=== PATIENT | male | born 1935 | race Caucasian/White ===

== ENCOUNTER 2018-05-04 08:18 | Inpatient (IN) | payer MEDICAID ==
[~2018-05-04] VITALS: Ht 154.9 cm; Wt 46.7 kg
[2018-05-04 08:22] VITALS: BP 57/28
--- NOTE | 2018-05-04 08:28 | NUR ---
brought in by ems from [facility] extended care decreased spo2 below 80% vent dependent --- Patient has wounds covering a large amount of body. FLACC 0 at this time. Severe generalized weakness and left eye pupil blown due to previous injury. Patient trach to vent. Hednerson cath in place at time of arrival. Dr. Villalba made aware of patients condition.
--- NOTE | 2018-05-04 08:30 | NUR ---
spoke with patients daughter. stated she was on her way to the hospital and would arrive in 20 minutes.
--- NOTE | 2018-05-04 08:48 | NUR ---
RT at bedside.
--- NOTE | 2018-05-04 09:01 | NUR ---
Patient Daughter at bedside.
[2018-05-04] MEDS ORDERED: NEOMYCIN/POLYMYXIN/BACITRACIN 0.9 GM/1 PKT TP ONE (09:15)
[2018-05-04] MEDS ORDERED: LORazepam 2 MG/ML VIAL IVP ONE (09:20)
[2018-05-04] MEDS ORDERED: MORPHINE SULFATE 4 MG/ML SYR IM ONE (09:20)
--- NOTE | 2018-05-04 09:34 | NUR ---
TIA CANCELLED PER DR TORRES
[2018-05-04] MEDS: NACL 0.9% 1,000 ML IV SCH ×2 (09:41→13:01)
--- NOTE | 2018-05-04 10:00 | NUR ---
Faheem salcido in [facility] - 05/04/18 at 1048 by [place] PATIENT FAMILY AT BEDSIDE. WOUND DRESSING CHANGES PROVIDED TO WOUNDS ON BACK AND BUTTOCKS.
--- NOTE | 2018-05-04 10:00 | NUR ---
PATIENT FAMILY AT BEDSIDE. WOUND DRESSING CHANGES PROVIDED TO WOUNDS ON BACK AND BUTTOCKS.
[2018-05-04 11:30] LABS: HEMATOCRIT 25.7 % (36-52); HEMOGLOBIN 7.6 g/dL (12.0-18.0); MEAN CORPUSCULAR HEMOGLOBIN 29 pg (27-31); MEAN CORPUSCULAR HGB CONC 30 g/dL (33-37); MEAN CORPUSCULAR VOLUME 97.7 fL (80-94); PLATELET COUNT (AUTO) 162 K/uL (140-450); RED BLOOD CELL COUNT(AUTO) 2.63 MIL/uL (4.20-6.10); RED CELL DISTRIBUTION WIDTH 18.1 % (11.6-13.7); WHITE BLOOD COUNT (AUTO) 14.3 K/uL (4.8-10.8)
[2018-05-04 11:36] LABS: ASPARTATE AMINOTRANSFERASE 18 U/L (15-37); CARBON DIOXIDE 31.2 mmol/L (21-32); CHLORIDE 99 mmol/L (98-107); CREATININE 1.1 mg/dL (0.7-1.3); GLUCOSE 72 mg/dL (74-106); POTASSIUM 5.2 mmol/L (3.5-5.1); SODIUM SERUM 137 mmol/L (136-145); TOTAL BILIRUBIN 0.5 mg/dL (0.0-1.0)
[2018-05-04 11:43] LABS: UREA NITROGEN, BLOOD 84 mg/dL (7-18)
[2018-05-04 11:51] LABS: LYMPHOCYTES % (MANUAL) 9 % (20-46); MONOCYTES % (MANUAL) 5 % (5-12)
--- NOTE | 2018-05-04 11:52 | NUR ---
PT TAKEN TO TELE FLOOR BY RN TOMMY, EMT BOOM, AND RT
[2018-05-04 11:55] LABS: APPEARANCE,URINE CLOUDY (CLEAR); BILIRUBIN,URINE NEGATIVE (NEGATIVE); BLOOD, URINE 2+ (NEGATIVE); COLOR,URINE YELLOW (YELLOW); LEUKOCYTE ESTERASE ,URINE 3+ (NEGATIVE); NITRITE, URINE NEGATIVE (NEGATIVE); UGLUCOSE NEGATIVE (NEGATIVE)
[2018-05-04] MEDS ORDERED: MORPHINE SULFATE 500 MG in NACL 0.9% 500 ML IV PRN (12:00)
[2018-05-04 12:03] LABS: RBC,URINE 20-50 /HPF (0-5); WBC,URINE TOO MANY TO COUNT /HPF (0-5)
[2018-05-04 12:05] VITALS: BP 39/18
--- NOTE | 2018-05-04 12:05 | NUR ---
PATIENT TAKEN TO TELE ROOM 1222-B UNDER THE CARE OF DR SIMONS. REPORT GIVEN TO RN FOR CONTINUED CARE. PATIENT MONITORED CLOSELY DURING TRANSFER.
--- NOTE | 2018-05-04 12:05 | NUR ---
RECEIVED BEDSIDE REPORT FROM ER NURSE. PATIENT APHASIC. TRACH TO VENT, NO DISTRESS NOTED. PATIENT UNABLE TO AMBULATE. MULTIPLE WOUNDS ON SKIN, NECK, BACK, BUTTOCKS, BUE, AND BLE. PATIENT SKIN WEEPING, R UPPER EXTREMITY SWELLING. PATIENT ON WOUND CARE BED. FALL RISK PROTOCOL IN PLACE. PICC LINE ON R UA. FI02 AT 100%, FLOW RATE OF 40, PEEP 5. 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 DRESSINGS ON WOUNDS ARE INTACT AND DRY AND CLEAN. BED IN LOW POSITION, CALL LIGHT WITHIN REACH. WILL CONTINUE TO MONITOR.
--- NOTE | 2018-05-04 12:08 | NUR ---
MOVED PT TO 122B BAGGED WITH 100% O2 THEN PLACED BACK ON VENT AND INCREASED FIO2 TO 100% DUE TO O2 SAT OF 86% AND ABHINAV FORTE NOTIFIED
[2018-05-04] MEDS ORDERED: LORazepam 1 MG TAB PO PRN (12:15)
[2018-05-04] MEDS ORDERED: SCOPOLAMINE 1.5 MG/72 HR PATCH TD SCH (12:21)
[2018-05-04] MEDS ORDERED: [UNRECOGNIZED DRUG - OTHER] IV PRN (13:30)
[2018-05-04] MEDS ORDERED: PANT40EC PO (13:50)
[2018-05-04] MEDS ORDERED: AMIO200T5 PO (13:50)
[2018-05-04] MEDS ORDERED: ASPI325T49 PO (13:50)
--- NOTE | 2018-05-04 15:42 | NUR ---
PATIENT HAD BOWEL MOVEMENT. CHANGED SOILED LINENS AND DRESSINGS AND APPLIED NEW DRESSINGS. APPLIED Z GUARD TO PATIENT. WILL CONTINUE TO MONITOR.
[2018-05-04 16:00] VITALS: BP 36/14
--- NOTE | 2018-05-04 16:00 | NUR ---
WOUND CARE NURSE STATED TO CLEAN WITH NS AND PACK WOUNDS WET TO DRY SINCE PATIENT IS ON MORPHINE DRIP.
--- NOTE | 2018-05-04 19:15 | NUR ---
PATIENT ON DOCUMENTED VENT SETTINGS. VENT PLUGGED INTO RED OUTLET. ALARMS ON AND AUDIBLE. AMBU BAG AT BEDSIDE. TRACH PATENT AND SECURED OVER WOUND. RN AWARE. ATTEMPTED TO GET CONTINUOUS PULSE OX TO READ CONTINUALLY BY TRYING THREE PULSE OX SITES TO NO AVAIL. MANAGED TO READ SAO2 ONLY FOR A FEW MINUTES. VITALS STABLE: 96%, RATE 12, PULSE 59, CLEAR BREATH SOUNDS. SXNED MODERATED AMOUNT OF THICK CREAMY SECRETIONS. FIVE FAMILY MEMBERS AT BEDSIDE PRAYING.
--- NOTE | 2018-05-04 19:40 | NUR ---
GAVE REPORT TO JEWEL BEARING BROACHER NURSE. PATIENT ENDORSED IN STABLE CONDITION.
--- NOTE | 2018-05-04 19:41 | NUR ---
RECEIVED PT FROM DAY SHIFT NURSE AT BED SIDE PT TRACH TO VENT DEPENDENT TV 500,FI02 100% RR 12 PEEP 5 ON MORPHINE DRIP INFUSING WELL ON RT UA PICC LINE, ON DEEP LETHARGIC STAGE MULTIPLES WOUND , CRONIN CATH DRAINING WELL YELLOW URINE, PT REPOSITIONED RELATIVES AT BED SIDE INITIAL ASSESSMENT DONE
[2018-05-04 20:00] VITALS: BP 36/15
--- NOTE | 2018-05-04 21:00 | NUR ---
PT ON CLOSE MONITORING LINEN CHANGED , AND SOME DRESSING CHANGED BP 36/15 PT DNR FAMILY AT BED SIDE ON TELEMETRY SB [id number] SAT 98%
--- NOTE | 2018-05-04 22:44 | NUR ---
PT HR 44 TRACH TO VENT DEPENDENT ON DEEP LETHARGIC STAGE
--- NOTE | 2018-05-04 23:00 | NUR ---
PT ON CONTINUING MONITORING, REPOSITIONED TELEMETRY RECORD HR 36 RELATIVES AT BED SIDE PT DNR
--- NOTE | 2018-05-04 23:07 | NUR ---
DR CHANG AT BED SIDE ASYSTOLE NO BP NOT 02 SAT PRONOUNCED FAMILY AT BED SIDE AND WE FOLLOW PROTOCOL FOR RECORD OF CHARGE NURSE AT BED SIDE
--- NOTE | 2018-05-05 | NUR ---
SUSSY FROM [facility] GIVE A # [phone]
--- NOTE | 2018-05-05 02:00 | NUR ---
FAMILY AT BED SIDE AND DWAITING FOR THE RESEARCH STAFF MEMBER NAME AND NUMBER, BODY IS CLEAN
--- NOTE | 2018-05-05 04:00 | NUR ---
AUTOTRANSFUSIONIST NAME SCOTT BORGES CALLED AND GIVE A AUTOTRANSFUSIONIST # [id number] AND BODY RELEASE BY AUTOTRANSFUSIONIST AT O4OO AM 05/05/18 ,
--- NOTE | 2018-05-05 04:10 | NUR ---
[facility] WAS NOTIFY AND THEY WILL LEGAL CONSULTANT THE BODY, FAMILY AT BED SIDE
--- NOTE | 2018-05-05 05:50 | NUR ---
[facility] RECORDS MANAGEMENT ANALYST IS HERE TO ASSISTANT CUSTOMER SERVICE MANAGER THE BODY FAMILY AT BED SIDE AND ALL KPAPER WORK PROTOCOL ALREADY SIGNED
--- NOTE | 2018-05-05 06:05 | NUR ---
SURI MARTEL ADVERTISING TRAFFIC MANAGER BODY AND LEFT THE HOSPITAL, ALL PROTOCOL ALREADY NOTIFY AND SIGNED
[2018-05-07] MEDS ORDERED: SCOPOLAMINE 1.5 MG/72 HR PATCH TD SCH (09:00)
== END 2018-05-04 23:07 | disposition expired | DRG 720 ==
LOC: MED 08:18 → EDBD 08:18 → MTU 11:26
PROVIDERS: ADMIT General Practice; ATTEND General Practice
PROC: 5A1935Z Respiratory Ventilation, Less than 24 Consecutive Hours (ICD-10-PCS; principal; 2018-05-04)
DX: A41.9 Sepsis, unspecified organism (principal); I21.4 Non-ST elevation (NSTEMI) myocardial infarction; J69.0 Pneumonitis due to inhalation of food and vomit; J96.20 Acute and chronic respiratory failure, unspecified whether with hypoxia or hypercapnia; E43 Unspecified severe protein-calorie malnutrition; N17.0 Acute kidney failure with tubular necrosis; M72.6 Necrotizing fasciitis; E87.5 Hyperkalemia; R13.10 Dysphagia, unspecified; I46.9 Cardiac arrest, cause unspecified; L89.150 Pressure ulcer of sacral region, unstageable; C34.90 Malignant neoplasm of unspecified part of unspecified bronchus or lung; D63.8 Anemia in other chronic diseases classified elsewhere; R65.21 Severe sepsis with septic shock; E86.0 Dehydration; I48.91 Unspecified atrial fibrillation; N39.0 Urinary tract infection, site not specified; Z68.1 Body mass index [BMI] 19.9 or less, adult; L03.221 Cellulitis of neck; R62.7 Adult failure to thrive; Z88.1 Allergy status to other antibiotic agents; F03.90 Unspecified dementia, unspecified severity, without behavioral disturbance, psychotic disturbance, mood disturbance, and anxiety; Z87.891 Personal history of nicotine dependence; Z74.01 Bed confinement status; I25.2 Old myocardial infarction; Z99.11 Dependence on respirator [ventilator] status; Z93.1 Gastrostomy status; Z87.01 Personal history of pneumonia (recurrent); L89.100 Pressure ulcer of unspecified part of back, unstageable
CPT/HCPCS: 36415; 71045; 80053; 81001; 83605; 84484; 85025; 86886; 86900; 86901; 87040; 87086; 87186; 89220; 93005; 94002; 96361; 96374; 96375; 99285; J2060; J2270; J7030